=== PATIENT | female | born 1935 | race African-American/Black ===

== ENCOUNTER 2020-05-22 11:16 | Emergency (ER) | payer OTHER ==
[~2020-05-22] VITALS: Ht 162.6 cm; Wt 137.0 kg
[2020-05-22] MEDS ORDERED: TOPUD MT (11:28)
[2020-05-22] MEDS ORDERED: CARI250T PO (11:28)
[2020-05-22] MEDS ORDERED: ENOX40DI8 SQ (11:28)
[2020-05-22] MEDS ORDERED: MULT-1146 PO (11:28)
[2020-05-22] MEDS ORDERED: DOCU-150 PO (11:28)
[2020-05-22] MEDS ORDERED: methadone (11:28)
[2020-05-22] MEDS ORDERED: ENAL10TA71 PO (11:28)
[2020-05-22] MEDS ORDERED: FUROSEMIDE 40MG/4ML VIAL IV ONE (11:45)
[2020-05-22] MEDS ORDERED: ASPIRIN 81MG TABLET PO ONE (11:45)
[2020-05-22 12:01] LABS: BASOPHILS % 1.2 % (0.0-2.0); EOSINOPHILS % 10.2 % (0.0-5.0); HEMATOCRIT. 29.8 % (36.0-48.0); HEMOGLOBIN. 9.2 g/dL (12.0-16.0); LYMPHOCYTES % 22.2 % (20.0-50.0); MEAN CORPUSCULAR HEMOGLOBIN 23.4 pg (28.0-32.0); MEAN CORPUSCULAR VOLUME 75.4 fL (81.0-99.0); MEAN PLATELET VOLUME 8.5 fl (7.4-10.4); MONOCYTES % 8.5 % (2.0-8.0); NEUTROPHILS % 57.9 % (40.0-76.0); PLATELET 253 x1000/uL (130-400); RED BLOOD CELL COUNT 3.95 mill/uL (4.2-5.4)
[2020-05-22 12:06] LABS: CHLORIDE 110 mEq/L (98-107)
[2020-05-22 14:57] VITALS: BP 146/64
== END 2020-05-22 15:45 | disposition short-term general hospital (02) ==
LOC: ER 11:16
DX: I20.0 Unstable angina (principal); I11.0 Hypertensive heart disease with heart failure; I50.9 Heart failure, unspecified; E11.9 Type 2 diabetes mellitus without complications
CPT/HCPCS: 36415; 71045; 80053; 83880; 84484; 85025; 93005; 93970; 96374; 99285; J1940

== ENCOUNTER 2020-05-25 20:43 | Inpatient (IN) | payer OTHER ==
[~2020-05-25] VITALS: Ht 165.1 cm; Wt 125.2 kg
[~2020-05-25 20:43] MED LIST: CARI250T PO; DOCU-150 PO; ENAL10TA71 PO; ENOX40DI8 SQ; MULT-1146 PO; TOPUD MT; methadone
[2020-05-25 23:13] LABS: BASOPHILS % 0.7 % (0.0-2.0); EOSINOPHILS % 3.6 % (0.0-5.0); HEMATOCRIT. 28.9 % (36.0-48.0); HEMOGLOBIN. 9.1 g/dL (12.0-16.0); LYMPHOCYTES % 15.7 % (20.0-50.0); MEAN CORPUSCULAR HEMOGLOBIN 23.4 pg (28.0-32.0); MEAN CORPUSCULAR VOLUME 74.3 fL (81.0-99.0); MEAN PLATELET VOLUME 8.5 fl (7.4-10.4); MONOCYTES % 13.6 % (2.0-8.0); NEUTROPHILS % 66.4 % (40.0-76.0); PLATELET 272 x1000/uL (130-400); RED BLOOD CELL COUNT 3.88 mill/uL (4.2-5.4); RED CELL DISTRIBUTION WIDTH 19.1 % (11.6-14.6)
[2020-05-25 23:23] LABS: CHLORIDE 105 mEq/L (98-107)
[2020-05-25 23:24] LABS: D-DIMER 1.77 mg/L FEU (<0.50); INR 1.6; PROTHROMBIN TIME 16.5 sec (9.6-11.0)
[2020-05-26] MEDS ORDERED: PIPERACILLIN/TAZ 3.375G PREMIX 50 ML IV ONE
[2020-05-26] MEDS ORDERED: ENOXAPARIN 100MG/ML SYR SUBCUT ONE
[2020-05-26] MEDS ORDERED: SODIUM CHLORIDE 0.9% 250 ML IV ONE (00:18)
[2020-05-26] MEDS ORDERED: CLONIDINE 0.1MG TABLET PO PRN (03:00)
[2020-05-26] MEDS ORDERED: POTASSIUM CHLORIDE 20MEQ TABLET SR PO SCH (03:00)
[2020-05-26] MEDS ORDERED: GUAIFENESIN 200MG/10ML SUGAR FREE UDC PO PRN (03:00)
[2020-05-26] MEDS ORDERED: ALBUTEROL 6.7GM HFA INHALER ORI PRN (03:00)
[2020-05-26] MEDS ORDERED: ACETAMINOPHEN 325MG TABLET PO PRN ×2 (03:00)
[2020-05-26] MEDS ORDERED: ONDANSETRON HCL 4MG/2ML INJ IV PRN (03:00)
[2020-05-26] MEDS ORDERED: DIPHENHYDRAMINE 50MG/ML VIAL IV PRN (03:00)
[2020-05-26 05:10] VITALS: BP 128/76
[2020-05-26] MEDS ORDERED: METO100T16 PO (06:45)
[2020-05-26] MEDS ORDERED: WARF2.5T83 PO (06:45)
[2020-05-26] MEDS ORDERED: METF500T20 PO (06:45)
[2020-05-26] MEDS ORDERED: HYDR25TA PO (06:45)
[2020-05-26] MEDS ORDERED: OMEP20CA14 PO (06:45)
[2020-05-26] MEDS ORDERED: AMLO2.5T45 PO (06:45)
[2020-05-26] MEDS ORDERED: CLON0.2T PO (06:45)
[2020-05-26] MEDS ORDERED: SIMV10TA97 PO (06:45)
[2020-05-26] MEDS ORDERED: LOSA100T32 PO (06:45)
[2020-05-26] MEDS ORDERED: POTA10TA2 PO (06:45)
[2020-05-26] MEDS: SODIUM CHLORIDE 0.9% INJ 3ML FLUSH IVF SCH ×3 (06:47→22:00)
[2020-05-26 08:00] VITALS: BP 104/52
[2020-05-26] MEDS: CEFTRIAXONE 1,000 MG in DEXTROSE 5% WATER 50 ML IV SCH (10:22)
[2020-05-26] MEDS: AZITHROMYCIN 500 MG in DEXT 5% WATER 250 ML IV SCH (10:22)
[2020-05-26] MEDS: FAMOTIDINE 20MG TABLET PO SCH (11:35)
[2020-05-26 12:00] VITALS: BP 112/84
[2020-05-26] MEDS ORDERED: DEXTROSE 50% WATER 50ML SYRINGE IV PRN (15:30)
[2020-05-26 16:00] VITALS: BP_SYST 142; BP_SYST 147; BP_DIAS 87; BP_DIAS 92
[2020-05-26] MEDS: POTASSIUM CHLORIDE 20MEQ TABLET SR PO SCH (16:40)
[2020-05-26] MEDS: BLOOD SUGAR DIAGNOSTIC STRIP TEST SCH ×2 (16:41→21:00)
[2020-05-26] MEDS ORDERED: FUROSEMIDE 40MG/4ML VIAL IVP NR (17:00)
[2020-05-26] MEDS: INSULIN LISPRO 100 UNITS/ML SUBCUT SCH ×2 (17:14→21:00)
[2020-05-26] MEDS ORDERED: FUROSEMIDE 40MG/4ML VIAL IVP SCH (17:15)
[2020-05-26 19:02] LABS: CLARITY URINE CLOUDY (CLEAR); COLOR URINE YELLOW (YELLOW); KETONES URINE NEGATIVE (NEGATIVE); LEUKOCYTE ESTERASE URINE 2+ (NEGATIVE); NITRITE URINE NEGATIVE (NEGATIVE); OCCULT BLOOD URINE 3+ (NEGATIVE); PH URINE 5.5 (4.5-8.0); PROTEIN URINE 1+ (NEGATIVE); SPECIFIC GRAVITY URINE 1.018 (1.005-1.030)
[2020-05-26 19:15] LABS: *AMPHETAMINES SCREEN URINE NEGATIVE (NEGATIVE); *BARBITURATES SCREEN URINE NEGATIVE (NEGATIVE); *BENZODIAZEPINES SCREEN URINE NEGATIVE (NEGATIVE); *COCAINE SCREEN URINE NEGATIVE (NEGATIVE); CANNABINOID URINE SCREEN NEGATIVE (NEGATIVE); METHADONE URINE SCREEN NEGATIVE (NEGATIVE); OPIATES URINE SCREEN NEGATIVE (NEGATIVE); PHENCYCLIDINE URINE SCREEN NEGATIVE (NEGATIVE)
[2020-05-26 20:00] VITALS: BP 127/61
[2020-05-26] MEDS: AMLODIPINE 2.5MG TABLET PO SCH (20:39)
[2020-05-26] MEDS: ENOXAPARIN 120MG/0.8ML SYR SUBCUT SCH (20:40)
[2020-05-26] MEDS ORDERED: ZOLPIDEM TARTRATE 5MG TABLET PO PRN (21:00)
[2020-05-26 23:30] VITALS: BP 164/78
[2020-05-27] VITALS (9 sets, daily range): BP systolic 114–168; BP diastolic 53–98
[2020-05-27] MEDS ORDERED: ENOXAPARIN 120MG/0.8ML SYR SUBCUT SCH (01:00)
[2020-05-27] MEDS: SODIUM CHLORIDE 0.9% INJ 3ML FLUSH IVF SCH ×2 (05:27→14:20)
[2020-05-27] MEDS: BLOOD SUGAR DIAGNOSTIC STRIP TEST SCH ×4 (06:21→20:50)
[2020-05-27 07:11] LABS: BASOPHILS % 1.3 % (0.0-2.0); EOSINOPHILS % 7.1 % (0.0-5.0); HEMATOCRIT. 27.1 % (36.0-48.0); HEMOGLOBIN. 8.5 g/dL (12.0-16.0); LYMPHOCYTES % 21.8 % (20.0-50.0); MEAN CORPUSCULAR HEMOGLOBIN 23.3 pg (28.0-32.0); MEAN CORPUSCULAR VOLUME 73.9 fL (81.0-99.0); MEAN PLATELET VOLUME 9.3 fl (7.4-10.4); MONOCYTES % 11.7 % (2.0-8.0); NEUTROPHILS % 58.1 % (40.0-76.0); PLATELET 266 x1000/uL (130-400); RED BLOOD CELL COUNT 3.66 mill/uL (4.2-5.4); RED CELL DISTRIBUTION WIDTH 19.4 % (11.6-14.6)
[2020-05-27 07:20] LABS: CHLORIDE 105 mEq/L (98-107)
[2020-05-27] MEDS: INSULIN LISPRO 100 UNITS/ML SUBCUT SCH ×5 (07:24→21:00)
[2020-05-27 07:29] LABS: TOTAL IRON BINDING CAPACITY 328 ug/dL (250-450)
[2020-05-27 07:31] LABS: PHOSPHORUS 2.2 mg/dL (2.5-4.9)
[2020-05-27] MEDS: CEFTRIAXONE 1,000 MG in DEXTROSE 5% WATER 50 ML IV SCH (08:01)
[2020-05-27 08:03] LABS: VITAMIN B12 SERUM 447 pg/mL (211-911)
[2020-05-27] MEDS: AZITHROMYCIN 500 MG in DEXT 5% WATER 250 ML IV SCH (08:13)
[2020-05-27] MEDS: POTASSIUM CHLORIDE 20MEQ TABLET SR PO SCH (08:14)
[2020-05-27] MEDS: FAMOTIDINE 20MG TABLET PO SCH (08:14)
[2020-05-27] MEDS: AMLODIPINE 2.5MG TABLET PO SCH ×2 (08:14→21:00)
[2020-05-27] MEDS: ENOXAPARIN 120MG/0.8ML SYR SUBCUT SCH ×3 (08:29→21:00)
[2020-05-27] MEDS ORDERED: DEXAMETHASONE 4MG TABLET PO SCH (09:00)
[2020-05-27] MEDS ORDERED: CYANOCOBALAMIN 1000MCG/ML VIAL IM NR (11:15)
[2020-05-27] MEDS ORDERED: FUROSEMIDE 40MG/4ML VIAL IVP SCH (15:00)
[2020-05-27 15:05] LABS: BG CARBOXYHEMOGLOBIN 0.3 % (0.5-1.5); BG DEOXYHEMOGLOBIN 6.2 % (0.0-5.0); BG FRACTION INSPIRED OXYGEN 21; BG HCO3 ACT 23.4 mmol/L (22.0-26.0); BG METHEMOGLOBIN 0.5 % (0.0-1.5); BG OXYGEN SATURATION 93.8 % (92.0-98.5); BG PCO2 33.7 mmHg (35.0-45.0); BG PO2 70.5 mmHg (75.0-100.0); BG SAMPLE SITE RIGHT RADIAL; BG TOTAL HEMOGLOBIN 10.1 g/dL (12.0-18.0); BG VENT MODE ROOM AIR
[2020-05-27] MEDS ORDERED: POTASSIUM CHLORIDE 20MEQ TABLET SR PO SCH (15:30)
[2020-05-27] MEDS ORDERED: FERROUS SULFATE 300MG/5ML UDC PO SCH (17:50)
== END 2020-05-27 21:45 | disposition short-term general hospital (02) | DRG 189 ==
LOC: ER 20:43 → 7WST 05-26 00:36 → ENRESERV 05-26 04:09 → 7WST 05-26 06:04 → 6WST 05-26 23:26
PROVIDERS: ADMIT Internal Medicine; ATTEND Internal Medicine
DX: J96.01 Acute respiratory failure with hypoxia (principal); I50.43 Acute on chronic combined systolic (congestive) and diastolic (congestive) heart failure; J18.9 Pneumonia, unspecified organism; J44.1 Chronic obstructive pulmonary disease with (acute) exacerbation; J44.0 Chronic obstructive pulmonary disease with (acute) lower respiratory infection; E87.2 Acidosis; Z68.42 Body mass index [BMI] 45.0-49.9, adult; D50.9 Iron deficiency anemia, unspecified; E11.9 Type 2 diabetes mellitus without complications; I11.0 Hypertensive heart disease with heart failure; M19.90 Unspecified osteoarthritis, unspecified site; E87.6 Hypokalemia; E66.01 Morbid (severe) obesity due to excess calories; Z87.891 Personal history of nicotine dependence; Z20.828 Contact with and (suspected) exposure to other viral communicable diseases; Z79.01 Long term (current) use of anticoagulants; Z79.899 Other long term (current) drug therapy
CPT/HCPCS: 36415; 36600; 71045; 80053; 80305; 81003; 82375; 82607; 82728; 82805; 82962; 83036; 83540; 83550; 83605; 83735; 83880; 84100; 84145; 84484; 85025; 85044; 85379; 85384; 86140; 87635; 93005; 93306; 93970; 99291; J0456; J0696; J1650; J1815; J1940; J2543; J3420; J7060; J8540

== ENCOUNTER 2021-11-07 12:00 | Inpatient (IN) | payer OTHER ==
[~2021-11-07] VITALS: Ht 165.1 cm; Wt 119.3 kg
[~2021-11-07 12:00] MED LIST changes: +AMLO2.5T45 PO; -CARI250T PO; +CLON0.2T PO; -DOCU-150 PO; -ENAL10TA71 PO; -ENOX40DI8 SQ; +HYDR25TA PO; +LOSA100T32 PO; +METF-907 PO; +METO100T16 PO; -MULT-1146 PO; +OMEP20CA14 PO; +POTA10TA2 PO; +SIMV10TA97 PO; -TOPUD MT; +WARF2.5T83 PO; -methadone
[2021-11-07] MEDS ORDERED: SODIUM CHLORIDE 0.9% 1,000 ML IV ONE (12:30)
[2021-11-07 12:44] LABS: HEMOGLOBIN. 10.3 g/dL (12.0-16.0); MEAN CORPUSCULAR HEMOGLOBIN 28.7 pg (28.0-32.0); MEAN CORPUSCULAR VOLUME 86.1 fL (81.0-99.0); MEAN PLATELET VOLUME 8.3 fl (7.4-10.4); PLATELET 299 x1000/uL (130-400); RED CELL DISTRIBUTION WIDTH 18.8 % (11.6-14.6)
[2021-11-07 12:52] LABS: CHLORIDE 100 mEq/L (98-107)
[2021-11-07] MEDS ORDERED: VANCOMYCIN 1G PREMIX 200 ML IV ONE (14:00)
[2021-11-07] MEDS ORDERED: CEFTRIAXONE 1 G PREMIX 50 ML IV ONE (14:00)
[2021-11-07 14:11] LABS: PLATELET ESTIMATE NORMAL
[2021-11-07] MEDS ORDERED: HYDROMORPHONE HCL/PF 2MG/ML CPJ IV PRN (17:15)
[2021-11-07] MEDS ORDERED: NALOXONE HCL 1 MG/ML 2ML VIAL IV PRN (17:15)
[2021-11-07] MEDS ORDERED: HYDROCODONE/ACETAMINOPHEN 5/325MG TABLET PO PRN ×2 (17:15→18:45)
[2021-11-07] MEDS: HYDROCODONE/ACETAMINOPHEN 10/325MG TABLET PO PRN ×2 (17:27→22:55)
[2021-11-07] MEDS ORDERED: IPRATROPIUM/ALBUTEROL 0.5-3(2.5)MG/3ML NEB HHN PRN (18:45)
[2021-11-07] MEDS ORDERED: LORAZEPAM 0.5MG TABLET PO PRN (18:45)
[2021-11-07] MEDS ORDERED: ONDANSETRON HCL 4MG/2ML INJ IV PRN (18:45)
[2021-11-07] MEDS ORDERED: CLONIDINE 0.1MG TABLET PO PRN (18:45)
[2021-11-07] MEDS ORDERED: ACETAMINOPHEN 325MG TABLET PO PRN ×2 (18:45)
[2021-11-07] MEDS ORDERED: DOCUSATE SODIUM 100MG CAPSULE PO PRN (18:45)
[2021-11-08 00:20] VITALS: BP 133/68
[2021-11-08 04:00] VITALS: BP 118/64
[2021-11-08 06:40] LABS: HEMATOCRIT. 29.8 % (36.0-48.0); HEMOGLOBIN. 9.7 g/dL (12.0-16.0); MEAN CORPUSCULAR HEMOGLOBIN 28.4 pg (28.0-32.0); MEAN CORPUSCULAR VOLUME 87.1 fL (81.0-99.0); MEAN PLATELET VOLUME 8.7 fl (7.4-10.4); PLATELET 223 x1000/uL (130-400); RED BLOOD CELL COUNT 3.42 mill/uL (4.2-5.4); RED CELL DISTRIBUTION WIDTH 18.7 % (11.6-14.6)
[2021-11-08 08:00] VITALS: BP 129/66
[2021-11-08] MEDS ORDERED: DEXTROSE 50% WATER 50ML SYRINGE IV PRN (11:45)
[2021-11-08 12:00] VITALS: BP 129/64
[2021-11-08] MEDS: BLOOD SUGAR DIAGNOSTIC STRIP TEST SCH ×3 (12:26→21:37)
[2021-11-08] MEDS: INSULIN LISPRO 100 UNITS/ML SUBCUT SCH ×3 (12:27→21:00)
[2021-11-08] MEDS ORDERED: NALOXONE HCL 0.4MG/ML VIAL IV PRN (12:45)
[2021-11-08 13:34] LABS: PLATELET ESTIMATE NORMAL
[2021-11-08] MEDS: AMLODIPINE 2.5MG TABLET PO SCH ×2 (13:59→21:00)
[2021-11-08] MEDS: METOPROLOL TARTRATE 100MG TABLET PO SCH ×2 (13:59→21:00)
[2021-11-08 14:56] LABS: TOTAL IRON BINDING CAPACITY 368 ug/dL (250-450)
[2021-11-08 15:29] LABS: PROTHROMBIN TIME 38.7 sec (9.6-11.0)
[2021-11-08 15:48] LABS: FOLIC ACID (FOLATE) SERUM 4.9 ng/mL (>5.38)
[2021-11-08 16:00] VITALS: BP 103/59
[2021-11-08 20:45] VITALS: BP 109/56
[2021-11-08] MEDS: OMEPRAZOLE 20MG CAPSULE EXTENDED RELEASE PO SCH (21:45)
[2021-11-08] MEDS: ATORVASTATIN CALCIUM 10MG TABLET PO SCH (21:45)
[2021-11-09 04:30] VITALS: BP 99/56
[2021-11-09] MEDS: BLOOD SUGAR DIAGNOSTIC STRIP TEST SCH ×4 (05:24→21:00)
[2021-11-09] MEDS: INSULIN LISPRO 100 UNITS/ML SUBCUT SCH ×4 (05:25→21:00)
[2021-11-09] MEDS: OMEPRAZOLE 20MG CAPSULE EXTENDED RELEASE PO SCH ×2 (05:53→21:00)
[2021-11-09 07:23] LABS: HEMATOCRIT. 30.3 % (36.0-48.0); HEMOGLOBIN. 9.8 g/dL (12.0-16.0); MEAN CORPUSCULAR HEMOGLOBIN 28.3 pg (28.0-32.0); MEAN CORPUSCULAR VOLUME 87.2 fL (81.0-99.0); MEAN PLATELET VOLUME 8.7 fl (7.4-10.4); PLATELET 281 x1000/uL (130-400); RED BLOOD CELL COUNT 3.47 mill/uL (4.2-5.4); RED CELL DISTRIBUTION WIDTH 18.8 % (11.6-14.6)
[2021-11-09 07:34] LABS: INR 3.8; PROTHROMBIN TIME 36.7 sec (9.6-11.0)
[2021-11-09 08:00] VITALS: BP 161/83
[2021-11-09 09:30] VITALS: BP 142/72
[2021-11-09] MEDS: AMLODIPINE 2.5MG TABLET PO SCH ×2 (11:06→21:00)
[2021-11-09] MEDS: METOPROLOL TARTRATE 100MG TABLET PO SCH ×2 (11:11→21:00)
[2021-11-09 12:00] VITALS: BP 138/65
[2021-11-09] MEDS: FOLIC ACID 1MG TABLET PO SCH (12:45)
[2021-11-09] MEDS: SODIUM CHLORIDE 0.9% 1,000 ML IV SCH (13:30)
[2021-11-09 14:04] VITALS: BP 135/75
[2021-11-09 14:14] LABS: PLATELET ESTIMATE NORMAL
[2021-11-09 16:00] VITALS: BP 138/75
[2021-11-09] MEDS: ATORVASTATIN CALCIUM 10MG TABLET PO SCH (21:00)
[2021-11-10] MEDS: BLOOD SUGAR DIAGNOSTIC STRIP TEST SCH ×3 (06:16→21:00)
[2021-11-10] MEDS: INSULIN LISPRO 100 UNITS/ML SUBCUT SCH ×3 (06:16→21:00)
[2021-11-10] MEDS: SODIUM CHLORIDE 0.9% 1,000 ML IV SCH (09:30)
[2021-11-10] MEDS: AMLODIPINE 2.5MG TABLET PO SCH ×2 (11:48→21:00)
[2021-11-10] MEDS: FOLIC ACID 1MG TABLET PO SCH (11:48)
[2021-11-10] MEDS: OMEPRAZOLE 20MG CAPSULE EXTENDED RELEASE PO SCH ×2 (11:48→21:00)
[2021-11-10] MEDS: METOPROLOL TARTRATE 100MG TABLET PO SCH ×2 (11:49→21:00)
[2021-11-10] MEDS ORDERED: CEFTRIAXONE 2 G PREMIX 50 ML IV SCH (15:45)
[2021-11-10 15:47] LABS: HEMATOCRIT. 32.8 % (36.0-48.0); MEAN CORPUSCULAR HEMOGLOBIN 26.7 pg (28.0-32.0); MEAN CORPUSCULAR VOLUME 87.8 fL (81.0-99.0); MEAN PLATELET VOLUME 8.6 fl (7.4-10.4); PLATELET 291 x1000/uL (130-400); RED BLOOD CELL COUNT 3.74 mill/uL (4.2-5.4); RED CELL DISTRIBUTION WIDTH 19.1 % (11.6-14.6)
[2021-11-10 15:56] LABS: INR 3.4
[2021-11-10 16:35] LABS: PHOSPHORUS 3.4 mg/dL (2.5-4.9)
[2021-11-10] MEDS ORDERED: AZITHROMYCIN 250 MG TABLET PO NR (17:00)
[2021-11-10] MEDS ORDERED: VANCOMYCIN 1G PREMIX 200 ML IV SCH (17:00)
[2021-11-10] MEDS ORDERED: PAMIDRONATE DISODIUM 60 MG in SODIUM CHLORIDE 0.9% 1,000 ML IV NR (19:45)
[2021-11-10] MEDS: ATORVASTATIN CALCIUM 10MG TABLET PO SCH (21:45)
[2021-11-10 21:53] LABS: PLATELET ESTIMATE NORMAL
[2021-11-11] VITALS: BP 139/70
[2021-11-11 04:00] VITALS: BP 130/79
[2021-11-11] MEDS: OMEPRAZOLE 20MG CAPSULE EXTENDED RELEASE PO SCH ×3 (07:10→21:07)
[2021-11-11] MEDS: INSULIN LISPRO 100 UNITS/ML SUBCUT SCH ×4 (07:40→21:00)
[2021-11-11] MEDS: BLOOD SUGAR DIAGNOSTIC STRIP TEST SCH ×4 (07:45→21:11)
[2021-11-11 07:46] LABS: BASOPHILS % 0.4 % (0.0-2.0); EOSINOPHILS % 0.9 % (0.0-5.0); HEMATOCRIT. 30.4 % (36.0-48.0); HEMOGLOBIN. 9.7 g/dL (12.0-16.0); LYMPHOCYTES % 8.4 % (20.0-50.0); MEAN CORPUSCULAR HEMOGLOBIN 27.5 pg (28.0-32.0); MEAN CORPUSCULAR VOLUME 86.2 fL (81.0-99.0); MEAN PLATELET VOLUME 8.6 fl (7.4-10.4); MONOCYTES % 5.8 % (2.0-8.0); NEUTROPHILS % 84.5 % (40.0-76.0); PLATELET 253 x1000/uL (130-400); RED BLOOD CELL COUNT 3.53 mill/uL (4.2-5.4); RED CELL DISTRIBUTION WIDTH 18.6 % (11.6-14.6)
[2021-11-11 07:54] LABS: PROTHROMBIN TIME 39.5 sec (9.6-11.0)
[2021-11-11 07:58] LABS: PHOSPHORUS 3.4 mg/dL (2.5-4.9)
[2021-11-11 08:25] VITALS: BP 160/83
[2021-11-11] MEDS: FOLIC ACID 1MG TABLET PO SCH (08:46)
[2021-11-11] MEDS: METOPROLOL TARTRATE 100MG TABLET PO SCH ×3 (08:47→21:08)
[2021-11-11] MEDS: AMLODIPINE 2.5MG TABLET PO SCH ×3 (08:48→21:10)
[2021-11-11] MEDS: AZITHROMYCIN 250 MG TABLET PO SCH (08:49)
[2021-11-11] MEDS ORDERED: HYDROCODONE/ACETAMINOPHEN 5/325MG TABLET PO PRN (12:00)
[2021-11-11 12:15] VITALS: BP 156/81
[2021-11-11 12:17] LABS: INR 4.1
[2021-11-11] MEDS ORDERED: POTASSIUM CHLORIDE 20MEQ TABLET SR PO SCH (14:00)
[2021-11-11 15:42] VITALS: BP 140/74
[2021-11-11] MEDS: CEFTRIAXONE 2 G in DEXTROSE 5% WATER 50 ML IV SCH ×2 (16:39→16:40)
[2021-11-11] MEDS: MAGNESIUM OXIDE 400MG TABLET PO SCH (16:44)
[2021-11-11] MEDS: SODIUM CHLORIDE 0.9% 1,000 ML IV SCH (16:47)
[2021-11-11 20:00] VITALS: BP 157/89
[2021-11-11] MEDS: ATORVASTATIN CALCIUM 10MG TABLET PO SCH ×2 (21:00→21:09)
[2021-11-12] VITALS (8 sets, daily range): BP systolic 119–164; BP diastolic 58–80
[2021-11-12] MEDS: SODIUM CHLORIDE 0.9% 1,000 ML IV SCH (01:30)
[2021-11-12 05:52] LABS: PROTHROMBIN TIME 41.8 sec (9.6-11.0)
[2021-11-12] MEDS: INSULIN LISPRO 100 UNITS/ML SUBCUT SCH ×4 (06:05→21:00)
[2021-11-12] MEDS: BLOOD SUGAR DIAGNOSTIC STRIP TEST SCH ×4 (06:05→21:35)
[2021-11-12 06:11] LABS: HEMATOCRIT. 29.4 % (36.0-48.0); HEMOGLOBIN. 9.6 g/dL (12.0-16.0); MEAN CORPUSCULAR HEMOGLOBIN 28.3 pg (28.0-32.0); MEAN CORPUSCULAR VOLUME 86.8 fL (81.0-99.0); MEAN PLATELET VOLUME 8.8 fl (7.4-10.4); PLATELET 231 x1000/uL (130-400); RED BLOOD CELL COUNT 3.39 mill/uL (4.2-5.4); RED CELL DISTRIBUTION WIDTH 19.4 % (11.6-14.6)
[2021-11-12 07:02] LABS: INR 4.4
[2021-11-12 10:16] LABS: PHOSPHORUS 3.1 mg/dL (2.5-4.9)
[2021-11-12] MEDS: OMEPRAZOLE 20MG CAPSULE EXTENDED RELEASE PO SCH ×3 (11:25→21:34)
[2021-11-12] MEDS: FOLIC ACID 1MG TABLET PO SCH (11:25)
[2021-11-12] MEDS: MAGNESIUM OXIDE 400MG TABLET PO SCH (11:25)
[2021-11-12] MEDS: AZITHROMYCIN 250 MG TABLET PO SCH (11:25)
[2021-11-12] MEDS: AMLODIPINE 2.5MG TABLET PO SCH ×2 (11:43→21:00)
[2021-11-12] MEDS: METOPROLOL TARTRATE 100MG TABLET PO SCH ×2 (11:44→21:00)
[2021-11-12] MEDS: CEFTRIAXONE 2 G in DEXTROSE 5% WATER 50 ML IV SCH (17:00)
[2021-11-12 17:28] LABS: PLATELET ESTIMATE NORMAL
[2021-11-12] MEDS: ATORVASTATIN CALCIUM 10MG TABLET PO SCH (21:00)
[2021-11-13] VITALS: BP 122/83
[2021-11-13] MEDS: SODIUM CHLORIDE 0.9% 1,000 ML IV SCH ×2 (03:50→21:30)
[2021-11-13 04:00] VITALS: BP 104/63
[2021-11-13] MEDS: INSULIN LISPRO 100 UNITS/ML SUBCUT SCH ×2 (06:21→12:40)
[2021-11-13] MEDS: BLOOD SUGAR DIAGNOSTIC STRIP TEST SCH ×2 (06:21→12:10)
[2021-11-13 06:43] LABS: HEMOGLOBIN. 9.7 g/dL (12.0-16.0); MEAN CORPUSCULAR HEMOGLOBIN 28.1 pg (28.0-32.0); MEAN CORPUSCULAR VOLUME 86.8 fL (81.0-99.0); MEAN PLATELET VOLUME 9.3 fl (7.4-10.4); PLATELET 234 x1000/uL (130-400); RED BLOOD CELL COUNT 3.46 mill/uL (4.2-5.4); RED CELL DISTRIBUTION WIDTH 18.8 % (11.6-14.6)
[2021-11-13 08:00] VITALS: BP 97/55
[2021-11-13 08:51] LABS: PHOSPHORUS 3.5 mg/dL (2.5-4.9)
[2021-11-13] MEDS: AZITHROMYCIN 250 MG TABLET PO SCH (08:54)
[2021-11-13] MEDS: MAGNESIUM OXIDE 400MG TABLET PO SCH (08:54)
[2021-11-13] MEDS: OMEPRAZOLE 20MG CAPSULE EXTENDED RELEASE PO SCH ×2 (08:54→20:19)
[2021-11-13] MEDS: FOLIC ACID 1MG TABLET PO SCH (08:56)
[2021-11-13] MEDS: METOPROLOL TARTRATE 100MG TABLET PO SCH ×2 (08:57→20:20)
[2021-11-13] MEDS: AMLODIPINE 2.5MG TABLET PO SCH ×3 (08:58→20:21)
[2021-11-13 09:06] LABS: VITAMIN D 25-OH 40.9 ng/mL (30.0-100.0)
[2021-11-13 09:48] LABS: INR 4.5
[2021-11-13] MEDS ORDERED: PAMIDRONATE DISODIUM 90 MG in SODIUM CHLORIDE 0.9% 1,000 ML IV NR (11:00)
[2021-11-13 11:13] LABS: BG BASE EXCESS 0.3 mmol/L (-2.0-2.0); BG CARBOXYHEMOGLOBIN 0.4 % (0.5-1.5); BG DEOXYHEMOGLOBIN 2.5 % (0.0-5.0); BG FRACTION INSPIRED OXYGEN 28; BG HCO3 ACT 23.1 mmol/L (22.0-26.0); BG METHEMOGLOBIN 0.6 % (0.0-1.5); BG OXYGEN SATURATION 97.5 % (92.0-98.5); BG OXYHEMOGLOBIN 96.5 % (94.0-97.0); BG PCO2 30.3 mmHg (35.0-45.0); BG PO2 100.7 mmHg (75.0-100.0); BG SAMPLE SITE RIGHT RADIAL; BG VENT MODE NASAL CANNULA
[2021-11-13 12:00] VITALS: BP 104/58
[2021-11-13 16:00] VITALS: BP 112/60
[2021-11-13] MEDS: CEFTRIAXONE 2 G in DEXTROSE 5% WATER 50 ML IV SCH (17:53)
[2021-11-13 20:00] VITALS: BP 130/73
[2021-11-13] MEDS: ATORVASTATIN CALCIUM 10MG TABLET PO SCH (20:19)
[2021-11-13] MEDS ORDERED: AMOX1TAB15 MT (21:34)
[2021-11-13 22:08] LABS: PLATELET ESTIMATE NORMAL
[2021-11-14] VITALS: BP 119/69
[2021-11-14 04:00] VITALS: BP 129/67
[2021-11-14] MEDS: OMEPRAZOLE 20MG CAPSULE EXTENDED RELEASE PO SCH (06:11)
[2021-11-14 08:00] VITALS: BP_SYST 104; BP_SYST 124; BP_DIAS 53; BP_DIAS 56
[2021-11-14] MEDS: MAGNESIUM OXIDE 400MG TABLET PO SCH (08:30)
[2021-11-14] MEDS: AZITHROMYCIN 250 MG TABLET PO SCH (08:30)
[2021-11-14] MEDS: FOLIC ACID 1MG TABLET PO SCH (08:30)
[2021-11-14] MEDS: METOPROLOL TARTRATE 100MG TABLET PO SCH (08:31)
[2021-11-14] MEDS: AMLODIPINE 2.5MG TABLET PO SCH (08:31)
[2021-11-14 08:32] LABS: HEMOGLOBIN. 9.4 g/dL (12.0-16.0); MEAN CORPUSCULAR HEMOGLOBIN 28.4 pg (28.0-32.0); MEAN CORPUSCULAR VOLUME 87.2 fL (81.0-99.0); MEAN PLATELET VOLUME 8.8 fl (7.4-10.4); PLATELET 182 x1000/uL (130-400); RED BLOOD CELL COUNT 3.32 mill/uL (4.2-5.4); RED CELL DISTRIBUTION WIDTH 19.4 % (11.6-14.6)
[2021-11-14 09:22] LABS: INR 5.2
[2021-11-14 09:26] LABS: PHOSPHORUS 3.4 mg/dL (2.5-4.9)
[2021-11-14 12:00] VITALS: BP 104/64
[2021-11-14] MEDS: SODIUM CHLORIDE 0.9% 1,000 ML IV SCH (12:30)
[2021-11-14 16:00] VITALS: BP 117/64
[2021-11-14] MEDS: CEFTRIAXONE 2 G in DEXTROSE 5% WATER 50 ML IV SCH (17:00)
[2021-11-14 17:16] LABS: PLATELET ESTIMATE NORMAL
== END 2021-11-14 16:35 | disposition home or self-care (01) | DRG 193 ==
LOC: ER 12:00 → MICUSO 15:10 → 8WST 23:28 → 5WST 23:45 → 8WST 23:46
PROVIDERS: ADMIT Internal Medicine; ATTEND Internal Medicine
DX: J18.9 Pneumonia, unspecified organism (principal); E43 Unspecified severe protein-calorie malnutrition; G93.41 Metabolic encephalopathy; I50.42 Chronic combined systolic (congestive) and diastolic (congestive) heart failure; I13.0 Hypertensive heart and chronic kidney disease with heart failure and stage 1 through stage 4 chronic kidney disease, or unspecified chronic kidney disease; N17.9 Acute kidney failure, unspecified; Z68.41 Body mass index [BMI] 40.0-44.9, adult; J44.0 Chronic obstructive pulmonary disease with (acute) lower respiratory infection; E83.52 Hypercalcemia; M25.512 Pain in left shoulder; M25.511 Pain in right shoulder; D64.9 Anemia, unspecified; R62.7 Adult failure to thrive; D25.9 Leiomyoma of uterus, unspecified; E11.22 Type 2 diabetes mellitus with diabetic chronic kidney disease; E53.8 Deficiency of other specified B group vitamins; E78.5 Hyperlipidemia, unspecified; E87.6 Hypokalemia; I48.91 Unspecified atrial fibrillation; Z20.822 Contact with and (suspected) exposure to COVID-19; K57.90 Diverticulosis of intestine, part unspecified, without perforation or abscess without bleeding; M19.90 Unspecified osteoarthritis, unspecified site; N18.30 Chronic kidney disease, stage 3 unspecified; E66.01 Morbid (severe) obesity due to excess calories; R79.1 Abnormal coagulation profile; T45.515A Adverse effect of anticoagulants, initial encounter; Z79.01 Long term (current) use of anticoagulants; Z82.49 Family history of ischemic heart disease and other diseases of the circulatory system; Z74.01 Bed confinement status; Z79.84 Long term (current) use of oral hypoglycemic drugs; Z91.81 History of falling; Z97.5 Presence of (intrauterine) contraceptive device; Z79.899 Other long term (current) drug therapy; Y92.89 Other specified places as the place of occurrence of the external cause; R41.0 Disorientation, unspecified
CPT/HCPCS: 36415; 36600; 71045; 71250; 73560; 74176; 76770; 80048; 80053; 82306; 82330; 82375; 82378; 82607; 82652; 82728; 82746; 82784; 82805; 82962; 83036; 83540; 83550; 83605; 83735; 83880; 83970; 84100; 84145; 84443; 84484; 85025; 86300; 86301; 86304; 86334; 87426; 93005; 97162; 99291; A4565; J0696; J2430; J3370; J7030; J7040; J7060

== ENCOUNTER 2021-11-16 02:07 | Inpatient (IN) | payer OTHER ==
[~2021-11-16] VITALS: Ht 154.9 cm; Wt 134.3 kg
[~2021-11-16 02:07] MED LIST changes: +AMOX1TAB15 MT; -HYDR25TA PO; -WARF2.5T83 PO
[2021-11-16] MEDS ORDERED: SODIUM CHLORIDE 0.9% 1000ML BAG (SEPSIS BOLUS) IV ONE ×2 (03:00→05:30)
[2021-11-16 04:31] LABS: HEMATOCRIT. 24.9 % (36.0-48.0); HEMOGLOBIN. 7.7 g/dL (12.0-16.0); MEAN CORPUSCULAR HEMOGLOBIN 27.5 pg (28.0-32.0); MEAN CORPUSCULAR VOLUME 88.9 fL (81.0-99.0); MEAN PLATELET VOLUME 8.9 fl (7.4-10.4); PLATELET 156 x1000/uL (130-400)
[2021-11-16 04:45] LABS: CHLORIDE 110 mEq/L (98-107)
[2021-11-16] MEDS ORDERED: PIPERACILLIN/TAZ 3.375G PREMIX 50 ML IV ONE (05:30)
[2021-11-16] MEDS ORDERED: VANCOMYCIN 1G PREMIX 200 ML IV ONE (05:30)
[2021-11-16 05:34] LABS: PLATELET ESTIMATE NORMAL
[2021-11-16 05:51] LABS: CLARITY URINE CLEAR (CLEAR); COLOR URINE DARK YELLOW (YELLOW); KETONES URINE TRACE (NEGATIVE); LEUKOCYTE ESTERASE URINE TRACE (NEGATIVE); NITRITE URINE NEGATIVE (NEGATIVE); OCCULT BLOOD URINE NEGATIVE (NEGATIVE); PROTEIN URINE TRACE (NEGATIVE); SPECIFIC GRAVITY URINE 1.025 (1.005-1.030)
[2021-11-16] MEDS ORDERED: IOHEXOL-300 100 ML BOTTLE ONE (06:01)
[2021-11-16 09:30] VITALS: BP_SYST 91; BP_SYST 98; BP_DIAS 50; BP_DIAS 55
[2021-11-16] MEDS ORDERED: CEFTRIAXONE 1 G PREMIX 50 ML IV SCH (09:45)
[2021-11-16] MEDS ORDERED: ONDANSETRON HCL 4MG/2ML INJ IV PRN (09:45)
[2021-11-16] MEDS: TRAMADOL 50MG TABLET PO PRN (11:34)
[2021-11-16] MEDS: CEFTRIAXONE 1,000 MG in DEXTROSE 5% WATER 50 ML IV SCH (11:34)
[2021-11-16 12:00] VITALS: BP 89/44
[2021-11-16 12:34] LABS: TOTAL IRON BINDING CAPACITY 222 ug/dL (250-450)
[2021-11-16] MEDS ORDERED: HYDROCODONE/ACETAMINOPHEN 5/325MG TABLET PO PRN (13:15)
[2021-11-16 16:00] VITALS: BP 95/61
[2021-11-16 20:00] VITALS: BP 103/54
[2021-11-17] VITALS: BP 102/51
[2021-11-17] MEDS: TRAMADOL 50MG TABLET PO PRN (01:58)
[2021-11-17 04:00] VITALS: BP 100/52
[2021-11-17 06:53] LABS: HEMATOCRIT. 25.9 % (36.0-48.0); HEMOGLOBIN. 8.2 g/dL (12.0-16.0); MEAN CORPUSCULAR HEMOGLOBIN 27.6 pg (28.0-32.0); MEAN CORPUSCULAR VOLUME 87.1 fL (81.0-99.0); MEAN PLATELET VOLUME 8.9 fl (7.4-10.4); PLATELET 141 x1000/uL (130-400); RED BLOOD CELL COUNT 2.98 mill/uL (4.2-5.4); RED CELL DISTRIBUTION WIDTH 19.3 % (11.6-14.6)
[2021-11-17 08:00] VITALS: BP 118/60
[2021-11-17] MEDS: CEFTRIAXONE 1,000 MG in DEXTROSE 5% WATER 50 ML IV SCH (10:42)
[2021-11-17 12:00] VITALS: BP 104/59
[2021-11-17] MEDS ORDERED: NALOXONE HCL 0.4MG/ML VIAL IV PRN (12:15)
[2021-11-17 13:24] LABS: PLATELET ESTIMATE NORMAL
[2021-11-17 16:00] VITALS: BP 103/42
[2021-11-17] MEDS ORDERED: VANCOMYCIN 750 MG in DEXT 5% WATER 250 ML IV SCH (19:00)
[2021-11-17 20:00] VITALS: BP 124/64
[2021-11-18] VITALS: BP 113/61
[2021-11-18 04:00] VITALS: BP 122/41
[2021-11-18 07:23] LABS: HEMATOCRIT. 25.9 % (36.0-48.0); HEMOGLOBIN. 8.4 g/dL (12.0-16.0); MEAN CORPUSCULAR HEMOGLOBIN 28.4 pg (28.0-32.0); MEAN CORPUSCULAR VOLUME 87.7 fL (81.0-99.0); MEAN PLATELET VOLUME 9.3 fl (7.4-10.4); PLATELET 136 x1000/uL (130-400); RED BLOOD CELL COUNT 2.95 mill/uL (4.2-5.4); RED CELL DISTRIBUTION WIDTH 19.4 % (11.6-14.6)
[2021-11-18] MEDS: CEFTRIAXONE 1,000 MG in DEXTROSE 5% WATER 50 ML IV SCH (09:22)
[2021-11-18 14:06] LABS: PLATELET ESTIMATE NORMAL
[2021-11-18 16:00] VITALS: BP 114/52
[2021-11-18] MEDS: VANCOMYCIN 750 MG in DEXT 5% WATER 250 ML IV SCH (17:16)
[2021-11-18 18:00] VITALS: BP 120/60
[2021-11-18 19:15] LABS: TOTAL IRON BINDING CAPACITY 320 ug/dL (250-450)
[2021-11-18 19:30] LABS: FOLIC ACID (FOLATE) SERUM 5.3 ng/mL (>5.38)
[2021-11-18 19:42] LABS: CARCINO EMBRYONIC ANTIGEN 11.7 ng/ml
[2021-11-18 20:00] VITALS: BP 126/72
[2021-11-19] VITALS: BP 116/66
[2021-11-19 04:06] VITALS: BP 136/66
[2021-11-19 08:07] LABS: A/G RATIO 0.8 (0.7-1.7); ALBUMIN 2.4 g/dL (2.9-4.4); ALPHA-1-GLOBULIN 0.3 g/dL (0.0-0.4); ALPHA-2-GLOBULIN 0.8 g/dL (0.4-1.0); GAMMA GLOBULINS 0.8 g/dL (0.4-1.8); M-SPIKE Not Observed g/dL (Not Observed); TOTAL PROTEIN SERUM 5.4 g/dL (6.0-8.5)
[2021-11-19] MEDS: CEFTRIAXONE 1,000 MG in DEXTROSE 5% WATER 50 ML IV SCH (09:02)
[2021-11-19] MEDS ORDERED: FOLI-43 MT (14:18)
[2021-11-19] MEDS: FOLIC ACID 1MG TABLET PO SCH (14:30)
[2021-11-19] MEDS ORDERED: POTASSIUM CHLORIDE 20MEQ/PACKET PO NR (17:45)
[2021-11-19] MEDS ORDERED: BISACODYL 5MG TABLET PO PRN (17:45)
[2021-11-19] MEDS: SORBITOL 70% SOLN 30ML PO SCH ×3 (18:43→23:47)
[2021-11-19] MEDS: METOCLOPRAMIDE HCL 10MG/2ML VIAL IV SCH ×3 (18:43→23:46)
[2021-11-19] MEDS: VANCOMYCIN 750 MG in DEXT 5% WATER 250 ML IV SCH (18:44)
[2021-11-19 20:00] VITALS: BP 130/52
[2021-11-20] VITALS (8 sets, daily range): BP systolic 119–148; BP diastolic 53–76
[2021-11-20] MEDS: SORBITOL 70% SOLN 30ML PO SCH (03:40)
[2021-11-20] MEDS: METOCLOPRAMIDE HCL 10MG/2ML VIAL IV SCH (03:40)
[2021-11-20 07:46] LABS: HEMATOCRIT. 28.3 % (36.0-48.0); HEMOGLOBIN. 9.2 g/dL (12.0-16.0); MEAN CORPUSCULAR HEMOGLOBIN 28.2 pg (28.0-32.0); MEAN CORPUSCULAR VOLUME 86.4 fL (81.0-99.0); MEAN PLATELET VOLUME 9.2 fl (7.4-10.4); PLATELET 129 x1000/uL (130-400); RED BLOOD CELL COUNT 3.27 mill/uL (4.2-5.4); RED CELL DISTRIBUTION WIDTH 19.4 % (11.6-14.6)
[2021-11-20 07:50] LABS: INR 3.5; PROTHROMBIN TIME 34.3 sec (9.6-11.0)
[2021-11-20] MEDS: FOLIC ACID 1MG TABLET PO SCH (09:00)
[2021-11-20] MEDS: CEFTRIAXONE 1,000 MG in DEXTROSE 5% WATER 50 ML IV SCH (11:13)
[2021-11-20 16:42] LABS: HEMATOCRIT. 29.6 % (36.0-48.0); HEMOGLOBIN. 9.4 g/dL (12.0-16.0); MEAN CORPUSCULAR HEMOGLOBIN 27.9 pg (28.0-32.0); MEAN CORPUSCULAR VOLUME 87.9 fL (81.0-99.0); MEAN PLATELET VOLUME 9.5 fl (7.4-10.4); PLATELET 137 x1000/uL (130-400); RED BLOOD CELL COUNT 3.37 mill/uL (4.2-5.4); RED CELL DISTRIBUTION WIDTH 19.9 % (11.6-14.6)
[2021-11-20 16:51] LABS: INR 3.8; PROTHROMBIN TIME 37.1 sec (9.6-11.0)
[2021-11-20 18:10] LABS: PLATELET ESTIMATE SLIGHTLY DECREASED
[2021-11-20 18:15] LABS: PLATELET ESTIMATE NORMAL
== END 2021-11-20 22:30 | disposition home or self-care (01) | DRG 205 ==
LOC: ER 02:07 → 5EST 06:43 → EDBEDREQSVC 06:47 → EDBEDREQTM 06:47 → EDBEDREQ 06:47 → 6WST 11-17 01:44
PROVIDERS: ADMIT Internal Medicine; ATTEND Internal Medicine
PROC: 30233K1 Transfusion of Nonautologous Frozen Plasma into Peripheral Vein, Percutaneous Approach (ICD-10-PCS; principal; 2021-11-20)
DX: S22.32XA Fracture of one rib, left side, initial encounter for closed fracture (principal); E43 Unspecified severe protein-calorie malnutrition; N17.9 Acute kidney failure, unspecified; I13.0 Hypertensive heart and chronic kidney disease with heart failure and stage 1 through stage 4 chronic kidney disease, or unspecified chronic kidney disease; C18.9 Malignant neoplasm of colon, unspecified; C90.00 Multiple myeloma not having achieved remission; Z68.43 Body mass index [BMI] 50.0-59.9, adult; I50.30 Unspecified diastolic (congestive) heart failure; D64.9 Anemia, unspecified; D72.825 Bandemia; E11.22 Type 2 diabetes mellitus with diabetic chronic kidney disease; E87.8 Other disorders of electrolyte and fluid balance, not elsewhere classified; N18.9 Chronic kidney disease, unspecified; E66.9 Obesity, unspecified; J44.9 Chronic obstructive pulmonary disease, unspecified; Z20.822 Contact with and (suspected) exposure to COVID-19; W06.XXXA Fall from bed, initial encounter; Y92.003 Bedroom of unspecified non-institutional (private) residence as the place of occurrence of the external cause; Z74.01 Bed confinement status; Z85.43 Personal history of malignant neoplasm of ovary; Y93.89 Activity, other specified; Y99.8 Other external cause status
CPT/HCPCS: 36415; 71045; 71260; 72170; 74177; 80048; 80053; 80202; 81003; 82105; 82378; 82607; 82728; 82746; 82962; 83540; 83550; 83605; 84145; 84155; 84165; 84484; 85025; 86301; 86850; 86900; 86927; 87426; 92610; 93005; 97162; 99291; C1893; J0696; J2543; J2765; J3370; J7030; J7040; J7060; P9017; Q9967